=== PATIENT | male | born 1965 | race Caucasian/White ===

== ENCOUNTER 2017-04-29 03:33 | Emergency (ER) | payer OTHER ==
[2017-04-29] MEDS: ONDANSETRON PF 4 MG/2 ML VIAL. IV ×2 (03:58)
[2017-04-29] MEDS: IV NORMAL SALINE 1000ML BAG 1,000 ML IV ×2 (03:59)
[2017-04-29] MEDS: HYDROmorphone 2 MG/ML VIAL IV/SQ ×2 (03:59)
[2017-04-29 05:29] LABS: BILIRUBIN,URINE NEGATIVE (NEG); CLARITY,URINE CLEAR; COLOR,URINE YELLOW; GLUCOSE,URINE NEGATIVE (NEG); NITRITE,URINE NEGATIVE (NEG); PH,URINE 5.5; PROTEIN,URINE NEGATIVE (NEG-TRACE); UROBILINOGEN,URINE 0.2 mg/dL (0.2 mg/dL)
[2017-04-29 05:36] LABS: BACTERIA,URINE 0 /HPF (0-FEW); RBC,URINE TNTC /HPF (0-2); SQUAMOUS EPITHELIAL CELL,UR FEW /LPF
== END 2017-04-29 07:06 | disposition home or self-care (01) ==
LOC: ER 03:33
DX: N50.812 Left testicular pain (principal); N20.0 Calculus of kidney; G89.29 Other chronic pain; Z88.0 Allergy status to penicillin
CPT/HCPCS: 74176; 76870; 81001; 96361; 96374; 96375; 99285-25; J1170; J2405; J7030